=== PATIENT | female | born 1970 | race Caucasian/White ===

== ENCOUNTER 2017-04-26 00:01 | Emergency (ER) | payer MEDICAID ==
[2017-04-26] MEDS ORDERED: SODIUM CHLORIDE 0.9% 500 ML IV ONE (00:16)
[2017-04-26] MEDS ORDERED: ACETAMINOPHEN W/ CODEINE 300MG/30MG TABLET PO ONE (00:17)
[2017-04-26 00:23] LABS: URINE APPEARANCE SL CLOUDY; URINE BILIRUBIN NEGATIVE (NEGATIVE); URINE BLOOD MODERATE (NEGATIVE); URINE COLOR YELLOW; URINE KETONE NEGATIVE (NEGATIVE); URINE LEUKOCYTE ESTERASE MODERATE (NEGATIVE); URINE NITRITE POSITIVE (NEGATIVE); URINE UROBILINOGEN 0.2 E.U./dL (0.20 - 1.00)
--- NOTE | 2017-04-26 00:23 | Emergency Department Record ---
History of Present Illness - General Chief complaint: Flank Pain Stated complaint: FLANK PAIN Time Seen by Provider: 04/26/17 00:02 Source: Patient Mode of Arrival: Ambulatory Limitations: No limitations - History of Present Illness Initial comments: 46 yo female presents with left flank pain that started about 3 hours ago at 9pm. The pain is sharp and radiates to the left groin region. She had some nausea. She had one loose stool. No blood in the urine. No blood in the stool. She does report a history of renal stones in the past. She has past renal stones twice in the past. No surgery for renal stones. She took 800mg of Motrin at 9pm and reports steady improvement since then. PCP is Lianna Fleming MD Complaint: Other (Left flank pain) -: Hour(s) (3) Location: Other (L Flank) Severity scale (1-10): 5 Quality: Sharp Consistency: Constant, Other (Improving at this time) Improves with: None Worsens with: None Patient : No Associated Symptoms: Other (One loose stool) - Related Data Previous Rx's Medication Instructions Recorded Cephalexin [Keflex] 500 mg PO TID 10 Days #30 cap 04/26/17 Allergies Allergy/AdvReac Type Severity Reaction Status Date / Time tramadol Allergy Intermediate Shaking Unverified 04/25/17 12:44 hydrocodone AdvReac Intermediate nausea/vomi Unverified 04/25/17 12:44 ting morphine AdvReac VOMITING Unverified 04/25/17 12:44 Penicillins AdvReac VOMITING Unverified 04/25/17 12:44 Review of Systems Constitutional: Denies: Chills, Fever, Malaise, Weakness Eyes: Denies: Eye discharge ENT: Denies: Congestion, Throat pain Respiratory: Denies: Cough, Dyspnea, Hemoptysis, Stridor, Wheezes Cardiovascular: Denies: Chest pain, Syncope Endocrine: Denies: Fatigue Gastrointestinal: Reports: As per HPI, Abdominal pain, Diarrhea (one) Genitourinary: Denies: Dysuria, Urgency Musculoskeletal: Reports: As per HPI, Back pain. Denies: Neck pain Skin: Denies: Bruising, Change in color, Rash Neurological: Denies: Headache, Numbness, Weakness Psychiatric: Denies: Anxiety Hematological/Lymphatic: Denies: Easy bleeding, Easy bruising, Swollen glands Past Medical History - SOCIAL HISTORY Smoking Status: Never smoker Drug Use: None - RESPIRATORY Hx Respiratory Disorders: Yes Hx Asthma: Yes - CARDIOVASCULAR Hx Cardio Disorders: Yes Hx Hypertension: Yes - NEURO Hx Neuro Disorders: Yes Hx Headaches: Yes - GI Hx GI Disorders: No - Hx Genitourinary Disorders: No - ENDOCRINE Hx Endocrine Disorders: Yes Hx Diabetes: Yes (pre-diabetic) Hx Thyroid Disease: No - MUSCULOSKELETAL Hx Musculoskeletal Disorders: Yes Hx Arthritis: Yes - PSYCH Hx Psych Problems: Yes Hx Anxiety: Yes - HEMATOLOGY/ONCOLOGY Hx Hematology/Oncology Disorders: No Family Medical History Hx Cancer: Mother, Brother/Sister, Grandparents Physical Exam - General General Appearance: Alert, Oriented x3, Cooperative, No acute distress Limitations: No limitations - Head Head exam: Normal inspection - Eye Eye exam: Normal appearance. negative: Conjunctival injection - ENT ENT exam: Normal exam Ear exam: Normal external inspection Nasal Exam: Normal inspection Mouth exam: Normal external inspection - Neck Neck exam: Normal inspection - Respiratory Respiratory exam: Normal lung sounds bilaterally. negative: Respiratory distress - Cardiovascular Cardiovascular Exam: Regular rate, Normal rhythm, Normal heart sounds - GI/Abdominal GI/Abdominal exam: Soft. negative: Distended, Guarding, Rebound, Rigid, Tenderness - Rectal Rectal exam: Deferred - exam: Deferred - Extremities Extremities exam: Normal inspection, Full ROM, Normal capillary refill. negative: Tenderness - Back Back exam: Reports: CVA tenderness (L). Denies: CVA tenderness (R), Full ROM, Muscle spasm, Rash noted, Tenderness, Vertebral tenderness - Neurological Neurological exam: Alert, Normal gait, Oriented X3 - Psychiatric Psychiatric exam: Normal affect, Normal mood. negative: Agitated, Anxious - Skin Skin exam: Dry, Intact, Normal color, Warm Course Vital Signs 04/26/17 00:08 Temperature 97.9 F Pulse Rate [ 90 Pulse Ox Probe] Respiratory 16 Rate Blood Pressure 173/94 [Left Arm] Pulse Ox 97 - Reevaluation(s) Reevaluation #1: The UA was reviewed She is LE positive, N positive, TNTC WBC and Bacteria with 0-2 epi's 04/26/17 00:28 04/26/17 01:16 The CBC was reviewed. No acute changes The CMP was reviewed. No acute changes in renal function. Glucose is [address] scan was reviewed. 1. No CT finding to explain the pain, 2. fatty Liver. 3. NonObstructing 5x4mm stone in the L lower pole of the Kidney. No ureteral calculi 3. No HN 4. Incidental note of air in the vagina 5. Mild thickening of the distal transverse colon though this may be due to underdistention rather than colitis Medical Decision Making - Lab Data Result diagrams: 04/26/17 00:22 02 00:22 Disposition Disposition: Discharge Clinical Impression: Urinary tract infection Qualifiers: Urinary tract infection type: acute cystitis Hematuria presence: without hematuria Qualified Code(s): N30.00 - Acute cystitis without hematuria Diarrhea Qualifiers: Diarrhea type: unspecified type Qualified Code(s): R19.7 - Diarrhea, unspecified Disposition: Home, Self-Care Condition: (1) Good Instructions: Flank Pain (ED), Urinary Tract Infection in Women (ED) Additional Instructions: Rest and stay well hydrated Return if you have fever, return of pain, vomiting or any new concerns Take the antibiotics as directed until gone Call your doctor to follow up the results of this ER visit Prescriptions: Cephalexin [Keflex] 500 mg PO TID 10 Days #30 cap Forms: Patient Portal Access Time of Disposition: 01:21 Quality - Quality Measures Quality Measures: N/A - Blood Pressure Screening Does Patient Have Any of the Following: Active Dx of HTN Blood Pressure Classification: Hypertensive Reading Systolic Measurement: 173 Diastolic Measurement: 94 Screening for High Blood Pressure: Patient Exclusion, Hx of HTN [G9744] Pre-Hypertensive Follow-up Interventions: Referral to alternative/primary care provider.
[2017-04-26 00:25] LABS: URINE BACTERIA 4+; URINE RBC 21 - 35 (NONE SEEN); URINE SQUAMOUS EPITHELIAL CELL 0 - 2 /hpf
[2017-04-26 00:28] LABS: BASO % 0.3 % (0-6); EOS % 3.1 % (0-6); GRAN % 67.9 % (47-80); HEMATOCRIT 37.8 % (35.0-47.0); HEMOGLOBIN 13.3 gm/dl (11.6-16.0); LYMPH % 21.9 % (16-45); MEAN CELL VOLUME 87.1 fl (81-97); MEAN CORPUSCULAR HEMOGLOBIN 30.6 pg (27-33); MEAN CORPUSCULAR HGB CONC 35.2 g/dl (32-36); MONO % 6.8 % (0-9); PLATELET COUNT 292 K/uL (130-400); RED BLOOD COUNT 4.34 M/uL (3.80-5.40); RED CELL DISTRIBUTION WIDTH 11.8 % (11.5-14.5); WHITE BLOOD COUNT W/O DIFF 9.3 K/uL (4.2-12.2)
[2017-04-26] MEDS ORDERED: CEFTRIAXONE SODIUM 1 GM in 0.9 % SODIUM CHLORIDE 100ML 100 ML IVPB ONE (00:28)
[2017-04-26 00:41] LABS: BLOOD UREA NITROGEN 10 mg/dL (6-20); CREATININE 0.5 mg/dL (0.5-0.9); EST GLOMERULAR FILTRATION RATE > 60 mL/min
[2017-04-26 00:42] LABS: TOTAL PROTEIN 6.8 g/dL (6.6-8.7)
[2017-04-26 00:44] LABS: GLUCOSE,RANDOM 194 mg/dL (74-109)
[2017-04-26 00:47] LABS: ALB/GLOB RATIO 1.5 (1.1-1.8); ALBUMIN 4.1 g/dL (4.0-5.0); ALKALINE PHOSPHATASE 112 U/L (35-104); ALT/SGPT 50 U/L (<33); AST/SGOT 32 U/L (10.0-35.0); LIPASE 41 U/L (13-60)
--- NOTE | 2017-04-27 18:22 | CT SCAN REPORT ---
EXAM: CT SCAN ABDOMEN/PELVIS WO CONTRAST HISTORY: LEFT FLANK PAIN. TECHNIQUE: Sequential axial images were obtained from the diaphragms through the ischiorectal fossa without intravenous or oral contrast administration. FINDINGS: There is severe fatty infiltration of the liver. The gallbladder has been surgically removed. The pancreas and spleen appear normal. The adrenal glands appear normal. There is a nonobstructing calculus in the left kidney measuring approximately 6 mm. There is mild left periureteral inflammatory change. No obstructing calculus is appreciated. Urinary tract infection cannot be excluded. The small bowel appears normal. The appendix is visualized and appears normal. The colon is visualized and appears normal. There is incomplete distention of the urinary bladder. The osseous structures are normal. IMPRESSION: 1. SEVERE FATTY INFILTRATION OF THE LIVER. 2. MILD LEFT PERIURETERAL INFLAMMATORY CHANGE. URINARY TRACT INFECTION IS NOT EXCLUDED. NO OBSTRUCTING CALCULUS IS APPRECIATED. THERE IS A 6 MM CALCIFICATION IN THE LEFT KIDNEY. 3. THE APPENDIX IS VISUALIZED AND APPEARS NORMAL. JOB NUMBER: [id number] MTDD
== END 2017-04-26 01:53 | disposition home or self-care (01) ==
LOC: ER 00:01
DX: N30.00 Acute cystitis without hematuria (principal); R19.7 Diarrhea, unspecified; I10 Essential (primary) hypertension; R10.9 Unspecified abdominal pain; R11.0 Nausea
CPT/HCPCS: 74176; 80053; 81001; 81025; 83690; 85025; 96374; 99284

== ENCOUNTER 2017-06-26 21:45 | Emergency (ER) | payer MEDICAID ==
[2017-06-26 22:19] LABS: URINE BILIRUBIN NEGATIVE (NEGATIVE); URINE BLOOD MODERATE (NEGATIVE); URINE COLOR YELLOW; URINE KETONE NEGATIVE (NEGATIVE); URINE LEUKOCYTE ESTERASE SMALL (NEGATIVE); URINE NITRITE POSITIVE (NEGATIVE); URINE UROBILINOGEN 0.2 E.U./dL (0.20 - 1.00)
[2017-06-26 22:21] LABS: URINE APPEARANCE CLOUDY
[2017-06-26 22:22] LABS: URINE BACTERIA 4+
[2017-06-26] MEDS ORDERED: KETOROLAC 30 MG/ML VIAL IVP ONE (22:23)
[2017-06-26] MEDS ORDERED: 0.9 % SODIUM CHLORIDE 1,000 ML BAG IV ONE (22:25)
[2017-06-26] MEDS ORDERED: ONDANSETRON HCL IV 4 MG/2 ML VIAL IVP ONE (22:28)
[2017-06-26 22:30] LABS: BASO % 0.3 % (0-6); EOS % 2.2 % (0-6); GRAN % 73.4 % (47-80); HEMATOCRIT 39.5 % (35.0-47.0); HEMOGLOBIN 13.4 gm/dl (11.6-16.0); LYMPH % 17.2 % (16-45); MEAN CORPUSCULAR HEMOGLOBIN 30.2 pg (27-33); MEAN CORPUSCULAR HGB CONC 33.9 g/dl (32-36); MEAN PLATELET VOLUME 11.7 fl (7.4-10.4); MONO % 6.9 % (0-9); PLATELET COUNT 275 K/uL (130-400); RED BLOOD COUNT 4.44 M/uL (3.80-5.40); RED CELL DISTRIBUTION WIDTH 12.6 % (11.5-14.5); WHITE BLOOD COUNT W/O DIFF 11.1 K/uL (4.2-12.2)
[2017-06-26 22:39] LABS: BLOOD UREA NITROGEN 8 mg/dL (6-20); CREATININE 0.5 mg/dL (0.5-0.9); EST GLOMERULAR FILTRATION RATE > 60 mL/min; TOTAL PROTEIN 7.1 g/dL (6.6-8.7)
[2017-06-26 22:41] LABS: GLUCOSE,RANDOM 213 mg/dL (74-109)
[2017-06-26 22:44] LABS: ALB/GLOB RATIO 1.4 (1.1-1.8); ALBUMIN 4.2 g/dL (4.0-5.0); ALKALINE PHOSPHATASE 139 U/L (35-104); ALT/SGPT 46 U/L (<33); AST/SGOT 24 U/L (10.0-35.0)
[2017-06-26] MEDS ORDERED: HYDROMORPHONE HCL 2 MG/ML VIAL IVP ONE (23:28)
[2017-06-26] MEDS ORDERED: CIPROFLOXACIN LACTATE/D5W 400 MG/200 ML BAG IVPB ONE (23:34)
--- NOTE | 2017-06-26 23:42 | Emergency Department Record ---
History of Present Illness - General Chief complaint: Flank Pain Stated complaint: RT SIDE PAIN Time Seen by Provider: 06/26/17 22:13 Source: Patient, Family Mode of Arrival: Ambulatory Limitations: No limitations - History of Present Illness Initial comments: pt c/o r flank pain and abd pain since morning that feels like previous kidney stones. she has vomited twice today. she also has had diarrhea for 3 days she also c/o pain in her vagina MD Complaint: Other Onset/Timin -: Hour(s) Radiation: R flank Severity: Moderate Severity scale (1-10): 8 Improves with: None Worsens with: None Patient : No Associated Symptoms: Nausea/vomiting - Related Data Allergies Allergy/AdvReac Type Severity Reaction Status Date / Time tramadol Allergy Intermediate Shaking Unverified 05/29/17 13:41 hydrocodone AdvReac Intermediate nausea/vomi Unverified 05/29/17 13:41 ting morphine AdvReac VOMITING Unverified 05/29/17 13:41 Penicillins AdvReac VOMITING Unverified 05/29/17 13:41 Travel Screening - Travel/Exposure Within Last 30 Days Have you traveled within the last 30 days?: No - Travel/Exposure Within Last Year Have you traveled outside the [place] in the last year?: No - Additonal Travel Details Have you been exposed to anyone with a communicable illness?: No - Travel Symptoms Symptom Screening: None Review of Systems Reviewed: No additional complaints except as noted below Constitutional: Reports: As per HPI. Denies: Chills, Fever, Malaise, Night sweats, Weakness, Weight change Eyes: Reports: As per HPI. Denies: Eye discharge, Eye pain, Photophobia, Vision change ENT: Reports: As per HPI. Denies: Congestion, Dental pain, Ear pain, Epistaxis , Hearing loss, Throat pain Respiratory: Reports: As per HPI. Denies: Cough, Dyspnea, Hemoptysis, Stridor, Wheezes Cardiovascular: Reports: As per HPI. Denies: Arrhythmia, Chest pain, Dyspnea on exertion, Edema, Murmurs, Orthopnea, Palpitations, Paroxysmal nocturnal dyspnea, Rheumatic Fever, Syncope Endocrine: Reports: As per HPI. Denies: Fatigue, Heat or cold intolerance, Polydipsia, Polyuria Gastrointestinal: Reports: As per HPI, Abdominal pain, Diarrhea, Nausea, Vomiting. Denies: Constipation, Hematemesis, Hematochezia, Melena Genitourinary: Reports: As per HPI. Denies: Abnormal menses, Discharge, Dyspareunia, Dysuria, Frequency, Hematuria, Incontinence, Retention, Urgency Musculoskeletal: Reports: As per HPI. Denies: Arthralgia, Back pain, Gout, Joint swelling, Myalgia, Neck pain Skin: Reports: As per HPI. Denies: Bruising, Change in color, Change in hair/ nails, Lesions, Pruritus, Rash Neurological: Reports: As per HPI. Denies: Abnormal gait, Confusion, Headache, Numbness, Paresthesias, Seizure, Tingling, Tremors, Vertigo, Weakness Psychiatric: Reports: As per HPI. Denies: Anxiety, Auditory hallucinations, Depression, Homicidal thoughts, Suicidal thoughts, Visual hallucinations Hematological/Lymphatic: Reports: As per HPI. Denies: Anemia, Blood Clots, Easy bleeding, Easy bruising, Swollen glands Past Medical History - SOCIAL HISTORY Smoking Status: Never smoker - RESPIRATORY Hx Respiratory Disorders: Yes Hx Asthma: Yes - CARDIOVASCULAR Hx Cardio Disorders: Yes Hx Hypertension: Yes - NEURO Hx Neuro Disorders: Yes Hx Headaches: Yes - GI Hx GI Disorders: No - Hx Genitourinary Disorders: No - ENDOCRINE Hx Endocrine Disorders: Yes Hx Diabetes: Yes (pre-diabetic) Hx Thyroid Disease: No - MUSCULOSKELETAL Hx Musculoskeletal Disorders: Yes Hx Arthritis: Yes - PSYCH Hx Psych Problems: Yes Hx Anxiety: Yes - HEMATOLOGY/ONCOLOGY Hx Hematology/Oncology Disorders: No Family Medical History Any Significant Family History?: Yes Hx Cancer: Mother, Brother/Sister, Grandparents Physical Exam - General General Appearance: Alert, Oriented x3, Cooperative, Moderate distress - Head Head exam: Normal inspection - Eye Eye exam: Normal appearance, PERRL, EOMI Pupils: Normal accommodation - ENT ENT exam: Normal exam, Mucous membranes moist, Normal external ear exam, Normal orophraynx, TM's normal bilaterally Ear exam: Normal external inspection. negative: External canal tenderness Nasal Exam: Normal inspection. negative: Discharge, Sinus tenderness Mouth exam: Normal external inspection, Tongue normal Teeth exam: Normal inspection. negative: Dental caries Throat exam: Normal inspection. negative: Tonsillar erythema, Tonsillar exudate - Neck Neck exam: Normal inspection, Full ROM. negative: Tenderness - Respiratory Respiratory exam: Normal lung sounds bilaterally. negative: Respiratory distress - Cardiovascular Cardiovascular Exam: Normal rhythm, Normal heart sounds, Tachycardia - GI/Abdominal GI/Abdominal exam: Soft, Normal bowel sounds. negative: Tenderness - Rectal Rectal exam: Deferred - exam: Deferred - Extremities Extremities exam: Normal inspection, Full ROM, Normal capillary refill. negative: Tenderness - Back Back exam: Reports: Normal inspection, Full ROM. Denies: Muscle spasm, Rash noted, Tenderness - Neurological Neurological exam: Alert, CN II-XII intact, Normal gait, Oriented X3 - Psychiatric Psychiatric exam: Normal affect, Normal mood - Skin Skin exam: Dry, Intact, Normal color, Warm Course Vital Signs 06/26/17 06/26/17 06/26/17 21:57 22:31 23:07 Temperature 98.1 F 99.0 F Pulse Rate [ 115 H 105 H Pulse Ox Probe] Respiratory 20 24 Rate Blood Pressure 123/66 [Left Arm] Blood Pressure 142/95 [Right Arm] Pulse Ox 97 94 L Medical Decision Making - Lab Data Result diagrams: 06/26/17 22:07 06/26/17 22:07 Lab Results 06/26/17 06/26/17 06/26/17 Range/Units 22:03 22:07 22:07 WBC 11.1 (4.2-12.2) K/uL RBC 4.44 (3.80-5.40) M/uL Hgb 13.4 (11.6-16.0) gm/dl Hct 39.5 (35.0-47.0) % MCV 89.0 (81-97) fl MCH 30.2 (27-33) pg MCHC 33.9 (32-36) g/dl RDW 12.6 (11.5-14.5) % Plt Count 275 (130-400) K/uL MPV 11.7 H (7.4-10.4) fl Gran % 73.4 (47-80) % Lymphocytes % 17.2 (16-45) % Monocytes % 6.9 (0-9) % Eosinophils % 2.2 (0-6) % Basophils % 0.3 (0-6) % Sodium 137 (136-145) mmol/L Potassium 3.6 (3.4-4.5) mmol/L Chloride 97 L (98-107) mmol/L Carbon Dioxide 24.0 (22-29) mmol/L Anion Gap 16.0 (7-16) BUN 8 (6-20) mg/dL Creatinine 0.5 (0.5-0.9) mg/dL Estimated GFR > 60 mL/min Random Glucose 213 H (74-109) mg/dL Calcium 9.3 (8.6-10.0) mg/dL Total Bilirubin 0.50 (0.2-1.0) mg/dL AST 24 (10.0-35.0) U/L ALT 46 H (<33) U/L Alkaline Phosphatase 139 H (35-104) U/L Total Protein 7.1 (6.6-8.7) g/dL Albumin 4.2 (4.0-5.0) g/dL Globulin 2.9 (1.4-4.8) gm/dL Albumin/Globulin Ratio 1.4 (1.1-1.8) Urine Color Yellow Urine Appearance Cloudy Urine pH 6.0 (5.0-8.0) Ur Specific Brandt 1.025 (1.002-1.030) Urine Protein 100 mg/dl H (NEGATIVE) Urine Glucose (UA) 100 mg/dl H (NEGATIVE) Urine Ketones Negative (NEGATIVE) Urine Blood Moderate (NEGATIVE) Urine Nitrite Positive H (NEGATIVE) Urine Bilirubin Negative (NEGATIVE) Urine Urobilinogen 0.2 (0.20 - 1.00) E.U./dL Ur Leukocyte Esterase Small H (NEGATIVE) Urine RBC 10 - 15 (NONE SEEN) Urine WBC Too numerous to cnt (0-2/hpf) Ur Epithelial Cells 3 - 6 (FEW) Urine Bacteria 4+ Disposition Disposition: Transfer Clinical Impression: Pyelonephritis, Hydroureter Hydronephrosis Qualifiers: Hydronephrosis type: unspecified Qualified Code(s): N13.30 - Unspecified hydronephrosis Disposition: Still a Patient at [facility] Transfer To: [facility] Reason For Transfer: needs urology Forms: Patient Portal Access Quality - Blood Pressure Screening Does Patient Have Any of the Following: No Blood Pressure Classification: Normal BP Reading Systolic Measurement: 110 Diastolic Measurement: 62 Screening for High Blood Pressure: < Normal BP, F/U Not Required > [G8706]
--- NOTE | 2017-06-28 16:37 | CT SCAN REPORT ---
EXAM: CT SCAN ABDOMEN/PELVIS WO CONTRAST HISTORY: RIGHT FLANK PAIN, WHICH BEGAN ABOUT 12 HOURS AGO EXTENDING INTO LOW PELVIS. HEMATURIA. TECHNIQUE: Axial CT scan of the abdomen and pelvis performed without oral or IV contrast. Preliminary report provided by [facility]. COMPARISON: CT abdomen and pelvis 04/26/17. FINDINGS: There is a single nonobstructing calculus in the lower pole of the left kidney, also present on 04/26/17. Otherwise, no intrarenal calculi identified on either side. There is greater prominence of the right renal pelvis today compared with the prior study, probably with slight caliectasis on the right today as well. Right ureter is also slightly dilated compared with the prior study with some haziness in the periureteral region. However, no ureteral calculus seen on the right and no bladder calculus evident. No hydronephrosis or hydroureter on the left with no left ureteral calculus as well , and the periureteral inflammatory change on the left noted previously is no longer apparent. Findings on the right may reflect a recently passed calculus and clinical correlation as to any such history of a recently passed calculus suggested. This could also represent urinary tract infection on the right. Correlation with urinalysis suggested. Slightly thick-walled appearance of the urinary bladder may simply be due to incomplete distention. Post-op cholecystectomy as before. Prominent diffuse fatty infiltration of the liver again evident with no focal hepatic mass identified. Evaluation of the bowel and viscera, however, is limited by the lack of oral or IV contrast. Given this limitation, no definite splenic, adrenal, pancreatic, or renal mass identified. Small periumbilical anterior abdominal wall hernia containing adipose tissue but no bowel. Appendix visualized and appears of negative with no appendicitis evident. No free intraperitoneal air or free intraperitoneal fluid identified. Degenerative disc disease, particularly at the L3-4 interspace. IMPRESSION: 1. SINGLE NONOBSTRUCTING CALCULUS LOWER POLE LEFT KIDNEY, BEFORE. 2. THERE IS PROBABLY MILD HYDRONEPHROSIS ON THE RIGHT, NEW SINCE THE PRIOR 01/01 STUDY. HOWEVER, NO URETERAL CALCULUS OR BLADDER CALCULUS SEEN. FINDINGS MAY REFLECT A RECENTLY PASSED RIGHT-SIDED URINARY TRACT CALCULUS. FINDINGS CAN ALSO BE SEEN WITH URINARY TRACT INFECTION ON THE RIGHT AND CLINICAL CORRELATION SUGGESTED. 3. HEPATOMEGALY WITH DIFFUSE FATTY INFILTRATION OF THE LIVER, SIMILAR TO THAT SEEN ON 04/26/17. 4. APPENDIX IS NEGATIVE. NO FREE AIR OR FREE FLUID EVIDENT. JOB NUMBER: [id number] MTDD
== END 2017-06-27 01:50 | disposition still patient (30) ==
LOC: ER 21:45
DX: N10 Acute pyelonephritis (principal); N13.4 Hydroureter; R10.2 Pelvic and perineal pain; R11.2 Nausea with vomiting, unspecified; R73.03 Prediabetes; R19.7 Diarrhea, unspecified; I10 Essential (primary) hypertension; Z87.442 Personal history of urinary calculi
CPT/HCPCS: 99285 ×2; 96374; 96375; 96361; 85025; 80053; 81001; 74176; J0744; J1885; J2405; J1170; J7030